=== PATIENT | female | born 1945 | race Caucasian/White ===

== ENCOUNTER 2023-05-14 22:10 | Emergency (ER) | payer MEDICARE ==
[~2023-05-14] VITALS: Ht 160 cm; Wt 56.2 kg
[2023-05-14 22:15] VITALS: BP 219/86
[2023-05-14] MEDS ORDERED: GLIMEPIRIDE2 MG PO (22:25)
[2023-05-14 23:08] LABS: BASO% 0.7 % (0-3); EOS% 4.9 % (0-8); HEMATOCRIT 32.3 % (37.0-47.0); HEMOGLOBIN 10.5 g/dl (12.0-16.0); IMMATURE GRANULOCYTES 0.5 % (0.0-5.0); LYMPH% 33.3 % (15-41); MEAN CELL VOLUME 89.7 fL CALC (80.0-100.0); MEAN CORPUSCULAR HGB 29.2 pG CALC (26.0-32.0); MEAN CORPUSCULAR HGB CONC 32.5 g/dL CAL (32.0-36.0); MONO% 11.5 % (2-13); NEUT# 2.1 thou/uL (2.00-7.15); NEUT% 49.1 % (42-76); RED BLOOD COUNT 3.6 mill/uL (4.20-5.60); RED CELL DISTRI WIDTH 12.2 % (11.5-15.5)
[2023-05-14 23:31] LABS: ALKALINE PHOSPHATASE 120 u/l (38-126); ANION GAP 15 (6-22 (CALC)); BILIRUBIN, TOTAL 0.5 mg/dL (0.02-1.3); BUN 13 mg/dL (8-23); BUN/CREATININE RATIO 23 (12-20 (CALC)); CARBON DIOXIDE 21 mmol/l (22-30); CHLORIDE 104 mmol/l (95-108); CREATININE 0.6 mg/dL (0.5-1.0); GFR FOR AFR.AMER. > 60 ML/MIN (>=60 (CALC)); GFR OTHER RACES > 60 ML/MIN (>=60 (CALC)); POTASSIUM 4.7 mmol/l (3.5-5.1); SGOT/AST 25 u/l (9-36); SODIUM 135 mmol/l (137-146); TOTAL PROTEIN 6.8 g/dL (6.3-8.2)
[2023-05-14] MEDS ORDERED: MIRALAX17 GM PO (23:47)
[2023-05-15 00:15] VITALS: BP 187/71
[2023-05-15 00:34] VITALS: BP 168/84
== END 2023-05-15 00:38 | disposition home or self-care (01) ==
LOC: ED 22:10
PROVIDERS: Family Medicine
DX: K59.00 Constipation, unspecified (principal); E11.9 Type 2 diabetes mellitus without complications; Z79.84 Long term (current) use of oral hypoglycemic drugs

== ENCOUNTER 2023-07-31 14:23 | Observation (INO) | payer MEDICARE, MEDICAID ==
[~2023-07-31] VITALS: Ht 160 cm; Wt 58.0 kg
[2023-07-31] VITALS (16 sets, daily range): BP systolic 131–207; BP diastolic 45–83
[~2023-07-31 14:23] MED LIST: GLIMEPIRIDE2 MG PO; MIRALAX17 GM PO
[2023-07-31 14:48] LABS: BASO% 0.2 % (0-3); EOS% 0.9 % (0-8); HEMATOCRIT 34.4 % (37.0-47.0); HEMOGLOBIN 11.2 g/dl (12.0-16.0); IMMATURE GRANULOCYTES 0.2 % (0.0-5.0); LYMPH% 41.7 % (15-41); MEAN CELL VOLUME 89.1 fL CALC (80.0-100.0); MEAN CORPUSCULAR HGB CONC 32.6 g/dL CAL (32.0-36.0); MONO% 6.7 % (2-13); NEUT# 2.34 thou/uL (2.00-7.15); NEUT% 50.3 % (42-76); RED BLOOD COUNT 3.86 mill/uL (4.20-5.60); RED CELL DISTRI WIDTH 12.7 % (11.5-15.5)
[2023-07-31 14:54] LABS: ALBUMIN 3.9 g/dL (3.2-5.0); ALKALINE PHOSPHATASE 70 u/l (38-126); ANION GAP 12 (6-22 (CALC)); BILIRUBIN, TOTAL 0.5 mg/dL (0.02-1.3); BUN 18 mg/dL (8-23); BUN/CREATININE RATIO 24 (12-20 (CALC)); CARBON DIOXIDE 24 mmol/l (22-30); CHLORIDE 105 mmol/l (95-108); CREATININE 0.8 mg/dL (0.5-1.0); GFR FOR AFR.AMER. > 60 ML/MIN (>=60 (CALC)); GFR OTHER RACES > 60 ML/MIN (>=60 (CALC)); HDL CHOLESTEROL 70 mg/dL (39.0-59.0); POTASSIUM 4.1 mmol/l (3.5-5.1); SGOT/AST 31 u/l (9-36); SODIUM 137 mmol/l (137-146); TOTAL PROTEIN 6.9 g/dL (6.3-8.2); TOTAL TRIGLYCERIDES 209 mg/dl (0-149); VLDL CHOLESTROL 42 mg/dl (0-48 (CALC))
[2023-07-31 14:56] LABS: PROTHROMBIN TIME 9.3 SECONDS (9.0-12.5)
[2023-07-31 15:04] LABS: CALCULATED LDLCHOLESTEROL 219 mg/dL (62-129 (CALC)); CHOLESTEROL HDL RATIO 4.7 (<4.4 (CALC)); TOTAL CHOLESTEROL 331 mg/dl (0-199)
[2023-07-31 16:36] LABS: URINE BILIRUBIN - DIPSTICK Negative (NEGATIVE); URINE BLOOD DIPSTICK Trace-intact (NEGATIVE); URINE COLOR Yellow; URINE GLUCOSE - DIPSTICK 500 mg/dL (NEGATIVE); URINE KETONE Negative (NEGATIVE); URINE LEUK ESTERASE Negative (NEGATIVE); URINE NITRITE - DIPSTICK Negative (Negative); URINE PH 7.5 (4.5-8.0); URINE PROTEIN - DIPSTICK Trace mg/dL (NEG-TRACE); URINE SPECIFIC GRAVITY 1.015; URINE UROBILINOGEN - DIPSTICK 0.2 E.U./dL (0.2)
[2023-08-01 00:14] LABS: CALCULATED LDLCHOLESTEROL 199 mg/dL (62-129 (CALC)); CHOLESTEROL HDL RATIO 5.1 (<4.4 (CALC)); HDL CHOLESTEROL 57 mg/dL (39.0-59.0); TOTAL CHOLESTEROL 289 mg/dl (0-199); TOTAL TRIGLYCERIDES 170 mg/dl (0-149); VLDL CHOLESTROL 34 mg/dl (0-48 (CALC))
[2023-08-01 05:54] LABS: HEMATOCRIT 31.2 % (37.0-47.0); HEMOGLOBIN 10.2 g/dl (12.0-16.0); MEAN CELL VOLUME 89.9 fL CALC (80.0-100.0); MEAN CORPUSCULAR HGB 29.4 pG CALC (26.0-32.0); MEAN CORPUSCULAR HGB CONC 32.7 g/dL CAL (32.0-36.0); RED BLOOD COUNT 3.47 mill/uL (4.20-5.60); RED CELL DISTRI WIDTH 12.8 % (11.5-15.5)
[2023-08-01 06:07] LABS: ALKALINE PHOSPHATASE 63 u/l (38-126); ANION GAP 7 (6-22 (CALC)); BILIRUBIN, TOTAL 0.5 mg/dL (0.02-1.3); BUN 18 mg/dL (8-23); BUN/CREATININE RATIO 32 (12-20 (CALC)); CARBON DIOXIDE 23 mmol/l (22-30); CHLORIDE 111 mmol/l (95-108); CREATININE 0.5 mg/dL (0.5-1.0); GFR FOR AFR.AMER. > 60 ML/MIN (>=60 (CALC)); GFR OTHER RACES > 60 ML/MIN (>=60 (CALC)); MAGNESIUM 1.8 mg/dL (1.6-2.3); POTASSIUM 3.7 mmol/l (3.5-5.1); SGOT/AST 23 u/l (9-36); SODIUM 137 mmol/l (137-146)
[2023-08-01 06:08] LABS: ALBUMIN 3.1 g/dL (3.2-5.0); TOTAL PROTEIN 5.5 g/dL (6.3-8.2)
[2023-08-01 19:45] VITALS: BP 153/75
[2023-08-01 20:45] VITALS: BP 171/67
[2023-08-01 21:45] VITALS: BP 197/134
[2023-08-01 22:15] VITALS: BP 164/63
[2023-08-01 22:46] VITALS: BP 151/67
[2023-08-01 23:46] VITALS: BP 147/66
[2023-08-02] VITALS (13 sets, daily range): BP systolic 118–193; BP diastolic 49–119
[2023-08-02 05:21] LABS: BASO% 0.5 % (0-3); EOS% 1.3 % (0-8); HEMATOCRIT 32.1 % (37.0-47.0); HEMOGLOBIN 10.4 g/dl (12.0-16.0); IMMATURE GRANULOCYTES 0.3 % (0.0-5.0); LYMPH% 37.8 % (15-41); MEAN CELL VOLUME 90.4 fL CALC (80.0-100.0); MEAN CORPUSCULAR HGB 29.3 pG CALC (26.0-32.0); MEAN CORPUSCULAR HGB CONC 32.4 g/dL CAL (32.0-36.0); MONO% 9.5 % (2-13); NEUT# 1.91 thou/uL (2.00-7.15); NEUT% 50.6 % (42-76); RED BLOOD COUNT 3.55 mill/uL (4.20-5.60); RED CELL DISTRI WIDTH 12.8 % (11.5-15.5)
[2023-08-02 05:48] LABS: ALBUMIN 3.1 g/dL (3.2-5.0); ALKALINE PHOSPHATASE 60 u/l (38-126); ANION GAP 9 (6-22 (CALC)); BUN 13 mg/dL (8-23); BUN/CREATININE RATIO 28 (12-20 (CALC)); CARBON DIOXIDE 21 mmol/l (22-30); CHLORIDE 110 mmol/l (95-108); CREATININE 0.5 mg/dL (0.5-1.0); GFR FOR AFR.AMER. > 60 ML/MIN (>=60 (CALC)); GFR OTHER RACES > 60 ML/MIN (>=60 (CALC)); MAGNESIUM 1.8 mg/dL (1.6-2.3); POTASSIUM 3.8 mmol/l (3.5-5.1); SGOT/AST 24 u/l (9-36); SODIUM 136 mmol/l (137-146); TOTAL PROTEIN 5.5 g/dL (6.3-8.2)
[2023-08-02 05:49] LABS: BILIRUBIN, TOTAL 0.8 mg/dL (0.02-1.3)
[2023-08-02] MEDS ORDERED: METFORMIN HCL1000 MG PO (09:53)
[2023-08-02] MEDS ORDERED: ASPIRIN 81 LOW81 MG PO (10:00)
[2023-08-02] MEDS ORDERED: PLAVIX75 MG PO (10:01)
[2023-08-02] MEDS ORDERED: ATORVASTATIN CA20 MG PO (10:01)
[2023-08-02] MEDS ORDERED: AMLODIPINE BESYL5 MG PO (10:02)
== END 2023-08-02 11:00 | disposition home or self-care (01) ==
LOC: ED 14:23 → ED-I 16:30 → ED 16:30 → ICU 17:02
PROVIDERS: Family Medicine; Student in an Organized Health Care Education/Training Program; ADMIT Student in an Organized Health Care Education/Training Program; ATTEND Student in an Organized Health Care Education/Training Program
DX: I63.81 Other cerebral infarction due to occlusion or stenosis of small artery (principal); G81.91 Hemiplegia, unspecified affecting right dominant side; R29.810 Facial weakness; R26.0 Ataxic gait; R47.81 Slurred speech; R29.701 NIHSS score 1; E11.9 Type 2 diabetes mellitus without complications; I10 Essential (primary) hypertension; E78.5 Hyperlipidemia, unspecified; D64.9 Anemia, unspecified; Z79.84 Long term (current) use of oral hypoglycemic drugs
CPT/HCPCS: J1650; Q9967

== ENCOUNTER 2023-11-26 22:55 | Emergency (ER) | payer MEDICARE ==
[~2023-11-26] VITALS: Ht 160 cm; Wt 65.0 kg
[~2023-11-26 22:55] MED LIST changes: +AMLODIPINE BESYL5 MG PO; +ASPIRIN 81 LOW81 MG PO; +ATORVASTATIN CA20 MG PO; +METFORMIN HCL1000 MG PO; +PLAVIX75 MG PO
[2023-11-26 23:04] VITALS: BP 189/62
[2023-11-26 23:06] VITALS: BP 171/66
[2023-11-26 23:33] LABS: BASO% 0.5 % (0-3); EOS% 1.6 % (0-8); HEMATOCRIT 29.7 % (37.0-47.0); HEMOGLOBIN 9.8 g/dl (12.0-16.0); IMMATURE GRANULOCYTES 0.3 % (0.0-5.0); LYMPH% 41.9 % (15-41); MEAN CORPUSCULAR HGB 29.7 pG CALC (26.0-32.0); MONO% 6.8 % (2-13); NEUT# 1.87 thou/uL (2.00-7.15); NEUT% 48.9 % (42-76); RED BLOOD COUNT 3.3 mill/uL (4.20-5.60)
[2023-11-26 23:42] LABS: URINE BILIRUBIN - DIPSTICK Negative (NEGATIVE); URINE BLOOD DIPSTICK Negative (NEGATIVE); URINE GLUCOSE - DIPSTICK 500 mg/dL (NEGATIVE); URINE KETONE 15 mg/dL (NEGATIVE); URINE LEUK ESTERASE Negative (NEGATIVE); URINE NITRITE - DIPSTICK Negative (Negative); URINE PH 5.5 (4.5-8.0); URINE PROTEIN - DIPSTICK 30 mg/dL (NEG-TRACE); URINE SPECIFIC GRAVITY 1.015; URINE UROBILINOGEN - DIPSTICK 0.2 E.U./dL (0.2)
[2023-11-26 23:48] LABS: AMYLASE 36 u/l (30-110)
[2023-11-26 23:49] LABS: URINE COLOR Yellow
[2023-11-26 23:49] LABS: ALKALINE PHOSPHATASE 77 u/l (38-126); AMYLASE 41 u/l (30-110); ANION GAP 9 (6-22 (CALC)); BUN 19 mg/dL (8-23); BUN/CREATININE RATIO 32 (12-20 (CALC)); CARBON DIOXIDE 24 mmol/l (22-30); CHLORIDE 108 mmol/l (95-108); CREATININE 0.6 mg/dL (0.5-1.0); GFR FOR AFR.AMER. > 60 ML/MIN (>=60 (CALC)); GFR OTHER RACES > 60 ML/MIN (>=60 (CALC)); LIPASE 103 u/l (23-300); POTASSIUM 3.6 mmol/l (3.5-5.1); SGOT/AST 23 u/l (9-36); SODIUM 137 mmol/l (137-146); TOTAL PROTEIN 6.3 g/dL (6.3-8.2)
[2023-11-26 23:54] LABS: URINE BACTERIA MODERATE hpf; URINE MUCUS FEW hpf (NONE-FEW); URINE SQUAMOUS EPITHELIAL CELL FEW EPI/hpf (0-FEW)
[2023-11-26 23:55] LABS: ALBUMIN 3.8 g/dL (3.2-5.0); BILIRUBIN, TOTAL 0.3 mg/dL (0.02-1.3)
[2023-11-27 01:01] VITALS: BP 182/58
[2023-11-27 02:00] VITALS: BP 172/68
[2023-11-27 03:00] VITALS: BP 186/71
[2023-11-27] MEDS ORDERED: BACTRIM DS1 TAB PO (03:06)
[2023-11-27] MEDS ORDERED: PYRIDIUM200 MG PO (03:06)
[2023-11-27 03:19] VITALS: BP 152/86
== END 2023-11-27 03:38 | disposition home or self-care (01) ==
LOC: ED 22:55
PROVIDERS: Family Medicine
DX: N39.0 Urinary tract infection, site not specified (principal); E11.9 Type 2 diabetes mellitus without complications; Z86.73 Personal history of transient ischemic attack (TIA), and cerebral infarction without residual deficits; Z79.84 Long term (current) use of oral hypoglycemic drugs